=== PATIENT | female | born 1960 | race Caucasian/White ===

== ENCOUNTER → 2019-05-09 12:05 | Outpatient (CLI) | payer BC, SELFPAY ==
--- NOTE | ~2019-05-09 | MM_ITS ---
EXAMINATION: MM screening erum BI w chelle HISTORY: Screening mammogram TECHNIQUE: Craniocaudal and mediolateral oblique 3-D tomosynthesis images were obtained and synthetic 2-D images were generated. CAD analysis was submitted and interpreted. COMPARISON: 03/07/2018 diagnostic left digital mammogram and limited left breast ultrasound 03/16/2018 bilateral digital screening mammogram 08/12/2016 diagnostic right digital mammogram 08/02/2016 and lateral digital screening mammogram BREAST PARENCHYMAL COMPOSITION: The breasts are heterogeneously dense, which may obscure small masses . FINDINGS: There is a biopsy marker on the left; history of 2018 benign left breast biopsy. Occasional benign calcifications. There is no evidence of suspicious mass, calcification, or architectural dist ortion to suggest malignancy in either breast. There has been no suspicious interval change. IMPRESSION: 1. No mammographic evidence of malignancy. 2. Recommend routine screening mammography in one year. BI-RADS Category 2: Benign finding(s). Reviewed, dictated and finalized at location A. MENT WORKER
--- NOTE | ~2019-05-09 | DEXA_ITS ---
Bone Density Report Name: Kate Sandoval Age: 59 Sex: Female Ethnicity: White Date of : 1960 Indication: postmenopausal osteoporosis; monitoring treatment; rheumatoid arthritis; Referring Provider: Saarh Beth, Cass Staton Study: Bone densitometry was performed. Exam Date: May 09, 2019 Accession number: [id number] Bone Density: Region BMD T-score Z-score Classification AP Spine (L1-L4) 0.740 -2.8 -1.6 Osteoporosis Femoral Neck (Left) 0.567 -2.5 -1.4 Osteoporosis Total Hip (Left) 0.733 -1.7 -0.9 Osteopenia Femoral Neck (Right) 0.606 -2.2 -1.0 Osteopenia Total Hip (Right) 0.767 -1.4 -0.6 Osteopenia Total Hip Mean 0.750 -1.6 -0.8 Osteopenia World Health Organization criteria for BMD impression classify patients as: Normal (T-score at or above -1.0), Osteopenia (T-score between -1.0 and -2.5), or Osteoporosis (T-score at or below -2.5). 10-year Fracture Risk: FRAX not reported because: Some T-score for Spine Total or Hip Total or Femoral Neck at or below -2.5 Treated for osteoporosis Previous Exams: Region Exam Age BMD T-score BMD Change BMD Change Date g/cm2 vs Baseline vs Previous AP Spine(L1-L4) 05/09/2019 59 0.740 -2.8 -0.203 -0.006 02/27/2018 57 0.746 -2.7 -0.197 -0.113* 01/23/2015 54 0.859 -1.7 -0.084 0.007 12/02/2012 52 0.853 -1.8 -0.091 -0.091 04/25/2002 42 0.943 -0.9 Total Hip(Left) 05/09/2019 59 0.733 -1.7 -0.116 0.017 02/27/2018 57 0.716 -1.9 -0.133 -0.040* 01/23/2015 54 0.756 -1.5 -0.093 -0.030* 12/02/2012 52 0.786 -1.3 -0.063 -0.063 04/25/2002 42 0.849 -0.8 Total Hip(Right) 05/09/2019 59 0.767 -1.4 -0.115 0.010 02/27/2018 57 0.757 -1.5 -0.125 -0.046* 01/23/2015 54 0.803 -1.1 -0.080 -0.033* 12/02/2012 52 0.836 -0.9 -0.047 -0.047 04/25/2002 42 0.882 -0.5 *Denotes significance at 95% confidence level, LSC for AP Spine = 0.022 g/cm2, LSC for Total Hip = 0.027 g/cm2 Clinical Information Provided by Patient: Has rheumatoid arthritis Is being treated for osteoporosis Has used the following medications: Evista (i.e. raloxifene), Vitamin D, Calcium Patient maximum height was 61.25 Menopause Age: 51 Onset of menses at age 15 Number of children 3
== END ==
PROVIDERS: PCP Internal Medicine; Visit Provider Nurse Practitioner Obstetrics & Gynecology
DX: Z12.31 Encounter for screening mammogram for malignant neoplasm of breast (principal); M81.0 Age-related osteoporosis without current pathological fracture; M85.852 Other specified disorders of bone density and structure, left thigh; M85.851 Other specified disorders of bone density and structure, right thigh
CPT/HCPCS: 77063; 77067; 77080

== ENCOUNTER 2019-05-15 07:04 | Outpatient (CLI) | payer BC, SELFPAY ==
[2019-05-15 09:06] LABS: Alanine Aminotransferase 29 U/L (14-59); Alkaline Phosphatase 28 U/L (46-116); Anion Gap 13.6 mmol/L (7-16); Aspartate Amino Transferase 23 U/L (15-37); Bilirubin,Total 0.5 mg/dL (0.00-1.00); Blood Urea Nitrogen 11 mg/dL (7-18); Carbon Dioxide 29 mmol/L (21-32); Chloride 106 mmol/L (98-108); Estimated Glomerular Filt Rate > 60; Free T3 2.56 pg/mL (2.18-3.98); Free T4 Free Thyroxine 0.83 ng/dL (0.76-1.46); Glucose 91 mg/dL (70-99); Osmolality Calculated 297 mOsm/kg (285-295); Potassium 4.6 mmol/L (3.5-5.1); Sodium 144 mmol/L (136-145); Thyroid Stimulating Hormone 3.08 uIU/mL (0.36-3.74); Total Protein 6.9 g/dL (6.4-8.2)
[2019-05-18 02:51] LABS: Thyroid Peroxidase Antibodies 198 IU/mL (<9)
== END 2019-05-15 07:05 | disposition home or self-care (01) ==
PROVIDERS: PCP Internal Medicine; Visit Provider Internal Medicine Endocrinology, Diabetes & Metabolism
DX: E06.3 Autoimmune thyroiditis (principal)
CPT/HCPCS: 36415; 80053; 84439; 84443; 84481; 86376

== ENCOUNTER 2019-05-29 07:24 | Outpatient (CLI) | payer BC, SELFPAY ==
[2019-05-29 08:37] LABS: Rheumatoid Factor Screen Negative (Negative)
[2019-05-29 09:08] LABS: Vitamin B12 807 pg/mL (193-986)
[2019-05-29 09:25] LABS: Folic Acid > 20.0 ng/mL (8.6->20)
[2019-06-03 11:26] LABS: Anti Cyclic Citrullinated Pept <16 Units (<20)
== END 2019-05-29 07:25 | disposition home or self-care (01) ==
PROVIDERS: PCP Internal Medicine; Visit Provider Internal Medicine Endocrinology, Diabetes & Metabolism
DX: Z87.39 Personal history of other diseases of the musculoskeletal system and connective tissue (principal)
CPT/HCPCS: 36415; 82607; 82746; 86200; 86430

== ENCOUNTER 2019-08-24 07:09 | Outpatient (CLI) | payer BC, SELFPAY ==
[2019-08-24 08:35] LABS: Alanine Aminotransferase 23 U/L (14-59); Alkaline Phosphatase 28 U/L (46-116); Anion Gap 12.3 mmol/L (7-16); Aspartate Amino Transferase 17 U/L (15-37); Bilirubin,Total 0.6 mg/dL (0.00-1.00); Blood Urea Nitrogen 11 mg/dL (7-18); Calcium 8.9 mg/dL (8.5-10.1); Carbon Dioxide 29 mmol/L (21-32); Chloride 104 mmol/L (98-108); Estimated Glomerular Filt Rate > 60; Free T3 2.71 pg/mL (2.18-3.98); Glucose 92 mg/dL (70-99); Osmolality Calculated 291 mOsm/kg (285-295); Potassium 4.3 mmol/L (3.5-5.1); Sodium 141 mmol/L (136-145); Thyroid Stimulating Hormone 3.36 uIU/mL (0.36-3.74)
[2019-08-27 03:40] LABS: Thyroid Peroxidase Antibodies 183 IU/mL (<9)
[2019-08-28 11:27] LABS: Vitamin D 25 Hydroxy 54 ng/mL (30-100)
[2019-08-28 12:24] LABS: Parathyroid Intact 29 pg/mL (14-64)
== END 2019-08-24 07:10 | disposition home or self-care (01) ==
PROVIDERS: PCP Internal Medicine; Visit Provider Internal Medicine Endocrinology, Diabetes & Metabolism
DX: E06.3 Autoimmune thyroiditis (principal); M81.0 Age-related osteoporosis without current pathological fracture
CPT/HCPCS: 36415; 80053; 82306; 83970; 84439; 84443; 84481; 86376

== ENCOUNTER 2019-08-24 15:30 | Outpatient (CLI) | payer BC, SELFPAY ==
--- NOTE | ~2019-08-24 | US_ITS ---
US thyroid INDICATION: Follow-up thyroid nodules. Hypothyroidism. TECHNIQUE: Real-time sonographic images of the thyroid gland were obtained. COMPARISON: Ultrasound dated 12/25/2018 FINDINGS: The right thyroid lobe measures 3 x 1.3 x 1.4 cm. No right thyroid mass identified on curre nt study. The left thyroid lobe measures 3.4 x 1.2 x 1.3 cm. There are 2 small left thyroid nodules m easuring 7 and 6 mm respectively greatest dimension without significant change from prior study allow ing for technique. IMPRESSION: 1. Small left thyroid nodules measuring 7 mm or less without significant change, most likely benign. These nodules do not meet TI rads criteria for biopsy or continued ultrasound follow-up. Reviewed, dictated and finalized at location A. IMPRESSION: 1. Small left thyroid nodules measuring 7 mm or less without significant matos e, most likely benign. These nodules do not meet TI rads criteria for biopsy or continued ultrasound follow-up.
== END 2019-08-24 15:31 | disposition home or self-care (01) ==
PROVIDERS: PCP Internal Medicine; Visit Provider Internal Medicine Endocrinology, Diabetes & Metabolism
DX: E03.9 Hypothyroidism, unspecified (principal); E04.2 Nontoxic multinodular goiter
CPT/HCPCS: 76536

== ENCOUNTER 2019-10-15 00:44 | Outpatient (CLI) | payer BC, SELFPAY ==
[2019-10-15 19:21] LABS: SARS-CoV-2 RNA PCR Negative
== END 2019-10-15 00:45 | disposition home or self-care (01) ==
LOC: ANHCOVIDDT 00:47
PROVIDERS: PCP Internal Medicine; Visit Provider Internal Medicine Gastroenterology
DX: Z01.812 Encounter for preprocedural laboratory examination (principal); Z11.59 Encounter for screening for other viral diseases
CPT/HCPCS: 87635; C9803; U0003

== ENCOUNTER 2019-10-17 02:56 | Day surgery (SDC) | payer BC, SELFPAY ==
[2019-10-09 14:09] VITALS: BMI 18.1
[2019-10-17 06:27] VITALS: BP 141/78; PULSE 89; RESP 14; TEMP 36.6; O2SAT 100; BMI 17.9
[2019-10-17] MEDS: LACTATED RINGERS 1,000 ML 150 ML IV CONT (06:40)
--- NOTE | 2019-10-17 06:48 | WPDANESEPPF ---
Anes - Initial Pre Proc Eval Procedure: Operation Date: 10/17/19 07:30 Proposed Procedures p Screening Colonoscopy - Lei Joyce MD Date/Time: 10/17/19 06:48 Surgeon: Lei Joyce MD Pre Op Diagnosis: Neoplasm Screening Patient Data Age: 59 Gender: F Height: 1.57 m Weight: 44.6 kg Last Vital Signs Temp 36.6 C 10/17/19 06:27 Pulse 89 10/17/19 06:27 Resp 14 10/17/19 06:27 BP 141/78 H 10/17/19 06:27 Pulse Ox 100 10/17/19 06:27 Allergies Allergy/AdvReac Type Severity Reaction Status Date / Time hydrocodone Allergy Mild Rash Verified 10/17/19 06:25 Penicillins Allergy Mild Rash Verified 10/17/19 06:25 Home Medications Medication Instructions Recorded Confirmed Type calcium carbonate 500 mg calcium 500 mg PO DAILY 08/24/19 10/17/19 History (1,250 mg) tablet cholecalciferol (vitamin D3) 50 50 mcg PO DAILY 08/24/19 10/17/19 History mcg (2,000 unit) capsule lactobacillus combination no.8 3 3,000 mmu cells PO DAILY 08/24/19 10/17/19 History billion cell capsule rljvvmezkpjw-Jc-xocp-minerals 1 tablet PO .qd tablet 08/24/19 10/17/19 History raloxifene 60 mg tablet 60 mg PO DAILY 08/24/19 10/17/19 History Thyroid Supplement 1 tab-cap PO DAILY 10/09/19 10/17/19 History Patient hx anesthesia problems: none Family hx anesthesia problems: none [facility] Past Medical History Medical History (Updated 10/17/19 @ 06:50 by Patrick Portillo MD) Clint's thyroiditis History of rheumatoid arthritis Osteoporosis Palpitations Thyroid nodule Social History Social History Smoking status: Never smoker Second hand tobacco smoke exposure: No Alcohol intake: current Drinks per week: 1 Substance use: never Anes - Eval Final PreProcedure Day of Procedure 10/17/19 06:48 Patient weight: normal Heart: regular rate and rhythm Lungs: clear to auscultation and normal air movement Airway: Mallampati scale class II Neurological: alert and oriented Last oral intake: >/= 8 hours ASA classification: II Emergent: no Anesthetic plan: proceed Anesthesia type and monitoring: general GIVS Informed Consent: The patient's anesthetic plan and its attendant risks and benefits were discussed with the patient/family/POA. Questions were solicited and answers provided to the satisfaction of the patient/family/POA.
--- NOTE | 2019-10-17 07:31 | WPDGICN ---
Assessment and Plan Assessment and plan (1) Encounter for screening for colorectal malignant neoplasm: Code(s): Z12.11 - Encounter for screening for malignant neoplasm of colon; Z12.12 - Encounter for screening for malignant neoplasm of rectum Status: Acute Assessment and Plan: screening colonoscopy today. He has been 10 years since patient's last screening exam. Further recommendations will be given after endoscopy. GI Consult Note Consult date/time: 10/17/19 07:31 HPI: Kate Sandoval is a 59 year old female seen in evaluation at the request of Dr Messer.Patient presents for neoplasia screening colonoscopy. Patient's current weight appetite bowel movements are normal. She denies abdominal pain. She does not see blood in her bowel movements. Her weight has remained stable. Her last colonoscopy 10 years ago was unremarkable. Review of Systems Review of Systems: All systems reviewed & are unremarkable except as noted in HPI and below PMFSH Past Medical History Medical History Clint's thyroiditis History of rheumatoid arthritis Osteoporosis Palpitations Thyroid nodule Family History Family History Father Hypertension Family history of osteoarthritis Family history of elevated blood lipids Family history of dementia Mother Hypertension Family history of heart disease in male family member before age 55 Sibling Patient's sister is Family history of rheumatoid arthritis Other Diabetes mellitus Family history of cardiovascular disease Family history of malignant neoplasm of skin Social History Social History Smoking status: Never smoker Second hand tobacco smoke exposure: No Alcohol intake: current Drinks per week: 1 Substance use: never Meds Home Medications and Allergies Home Medications Medication Instructions Recorded Confirmed Type calcium carbonate 500 mg calcium 500 mg PO DAILY 08/24/19 10/17/19 History (1,250 mg) tablet cholecalciferol (vitamin D3) 50 50 mcg PO DAILY 08/24/19 10/17/19 History mcg (2,000 unit) capsule lactobacillus combination no.8 3 3,000 mmu cells PO DAILY 08/24/19 10/17/19 History billion cell capsule rbxczjzaqrjz-Za-lsqz-minerals 1 tablet PO .qd tablet 08/24/19 10/17/19 History raloxifene 60 mg tablet 60 mg PO DAILY 08/24/19 10/17/19 History Thyroid Supplement 1 tab-cap PO DAILY 10/09/19 10/17/19 History Allergies Allergy/AdvReac Type Severity Reaction Status Date / Time hydrocodone Allergy Mild Rash Verified 10/17/19 06:25 Penicillins Allergy Mild Rash Verified 10/17/19 06:25 Vital Signs Vital Signs - 24 hr 10/17/19 06:27 Temperature 97.9 F Pulse Rate 89 Respiratory Rate 14 Blood Pressure 141/78 H Pulse Oximetry 100 Exam Narrative: Exam Narrative: Physical exam reveals her to be alert. Vital signs stable. HEENT exam unremarkable. Lungs are clear to auscultation and percussion. Heart is without murmur or extra sounds. Abdominal exam bowel sounds are present soft nontender with no hepatosplenomegaly. Digital external rectal exam normal
[2019-10-17] MEDS: SIMETHICONE ORAL SUSPENSION 20 MG/0.3 ML 30 ML BOTTLE 0.6 ML IRRIGATION (07:41)
[2019-10-17 07:53] VITALS: BP 99/58; PULSE 83; RESP 13; O2SAT 98
[2019-10-17 08:03] VITALS: BP 112/70; PULSE 94; RESP 18; O2SAT 97
[2019-10-17 08:13] VITALS: BP 120/79; PULSE 78; RESP 20; O2SAT 100
--- NOTE | 2019-10-17 08:37 | SUR.PHASEII ---
PT AWARE OF FINDINGS PER DISCHARGE INSTRUCTIONS. REQUESTING TO LEAVE AFTER BEING IN RECOVERY AND NOT HAVING SEEN THE DOCTOR POST PROCEDURE. PT AWARE TO CALL DOCTORS OFFICE WITH ANY QUESTIONS OR NEEDS. PT HAS NO QUESTIONS AT THIS TIME. DR FUNG MADE AWARE.
--- NOTE | 2022-09-21 12:53 | AMEND_ITS ---
Record Amendment there is a error in the [facility]- #1- NO family hx of heart ds in male family member before age 55 #2 sister is not The above addendum was made to the patient's record by Dr. Nir Messer on 09/19/2022 at 1253. Original addendum is on the Office Visit note from account [id number]. MTDD
== END 2019-10-17 08:35 | disposition home or self-care (01) ==
PROVIDERS: PCP Internal Medicine; Visit Provider Internal Medicine Gastroenterology
PROC: 0DJD8ZZ Inspection of Lower Intestinal Tract, Via Natural or Artificial Opening Endoscopic (ICD-10-PCS; CPT 45378; principal; 2019-10-17 07:30)
DX: Z12.11 Encounter for screening for malignant neoplasm of colon (principal); K64.8 Other hemorrhoids; E06.3 Autoimmune thyroiditis; M81.0 Age-related osteoporosis without current pathological fracture; M06.9 Rheumatoid arthritis, unspecified
CPT/HCPCS: 45378; J2704; J7120

== ENCOUNTER 2020-02-04 07:05 | Outpatient (CLI) | payer BC, SELFPAY ==
[2020-02-04 09:15] LABS: Alanine Aminotransferase 26 U/L (14-59); Albumin Level 3.9 g/dL (3.4-5.0); Alkaline Phosphatase 30 U/L (46-116); Anion Gap 9 mmol/L (8-16); Aspartate Amino Transferase 17 U/L (15-37); Bilirubin,Total 0.6 mg/dL (0.00-1.00); Blood Urea Nitrogen 16 mg/dL (7-18); Calcium 8.6 mg/dL (8.5-10.1); Carbon Dioxide 28 mmol/L (21-32); Chloride 106 mmol/L (98-108); Estimated Glomerular Filt Rate > 60; Free T3 2.42 pg/mL (2.18-3.98); Glucose 92 mg/dL (70-99); Osmolality Calculated 297 mOsm/kg (285-295); Phosphorus 4.9 mg/dL (2.6-4.7); Potassium 4.3 mmol/L (3.5-5.1); Sodium 143 mmol/L (136-145); Thyroid Stimulating Hormone 3.42 uIU/mL (0.36-3.74); Total Protein 6.6 g/dL (6.4-8.2)
[2020-02-06 14:14] LABS: Parathyroid Intact 33 pg/mL (14-64)
[2020-02-06 19:35] LABS: Vitamin D 25 Hydroxy 42 ng/mL (30-100)
[2020-02-07 03:41] LABS: Thyroid Peroxidase Antibodies 249 IU/mL (<9)
== END 2020-02-04 07:06 | disposition home or self-care (01) ==
PROVIDERS: PCP Internal Medicine; Visit Provider Internal Medicine Endocrinology, Diabetes & Metabolism
DX: E06.3 Autoimmune thyroiditis (principal); M81.0 Age-related osteoporosis without current pathological fracture
CPT/HCPCS: 36415; 80053; 82306; 83970; 84100; 84439; 84443; 84481; 86376

== ENCOUNTER → 2020-06-17 16:18 | Outpatient (CLI) | payer BC, SELFPAY ==
--- NOTE | ~2020-06-17 | US_ITS ---
EXAMINATION: US thyroid EXAM DATE: 06/17/2020 16:35 INDICATION: Non toxic single thyroid nodule . TECHNIQUE: Multiple grayscale and Doppler images of the thyroid were obtained (by a technologist who performed the scan) and subsequently reviewed. Individual nodules and recommendations may be reporte d in accordance with TI-RADS system as designated by the 2017 ACR White Paper TI-RADS committee. Comp piyush is made to prior examination from 12/25/2018, 08/24/2019. FINDINGS: The right thyroid lobe measures 2.9 x 1.4 x 1.2 cm, the left measuring 3.3 x 1.3 x 1.4 cm. Mildly dif fusely heterogeneous thyroid echogenicity and diffusely hypervascular parenchyma. Again there are sev eral thyroid nodules identified which are 7 mm or less in size, not significantly changed and not lik john clinically significant. Return to clinical follow-up. IMPRESSION: Small thyroid nodules not likely clinically significant. Return to clinical follow-up and if additional palpable abnormality develops a repeat ultrasound can be obtained. Reviewed, dictated and finalized at location A. IMPRESSION: Small thyroid nodules not likely clinically significant. Return to clinical follow-up and if additional palpable abnormality develops a repeat ult rasound can be obtained.
== END ==
PROVIDERS: PCP Internal Medicine; Visit Provider Internal Medicine Endocrinology, Diabetes & Metabolism
DX: E04.1 Nontoxic single thyroid nodule (principal)
CPT/HCPCS: 76536

== ENCOUNTER 2020-06-23 07:03 | Outpatient (CLI) | payer BC, SELFPAY ==
[2020-06-23 08:28] LABS: Alanine Aminotransferase 26 U/L (14-59); Albumin Level 3.9 g/dL (3.4-5.0); Alkaline Phosphatase 39 U/L (46-116); Anion Gap 8 mmol/L (8-16); Aspartate Amino Transferase 18 U/L (15-37); Bilirubin,Total 0.5 mg/dL (0.00-1.00); Blood Urea Nitrogen 15 mg/dL (7-18); Calcium 8.7 mg/dL (8.5-10.1); Carbon Dioxide 29 mmol/L (21-32); Chloride 104 mmol/L (98-108); Estimated Glomerular Filt Rate 60; Free T3 2.69 pg/mL (2.18-3.98); Free T4 Free Thyroxine 0.89 ng/dL (0.76-1.46); Glucose 97 mg/dL (70-99); Osmolality Calculated 292 mOsm/kg (285-295); Potassium 4.3 mmol/L (3.5-5.1); Sodium 141 mmol/L (136-145); Thyroid Stimulating Hormone 4.63 uIU/mL (0.36-3.74); Total Protein 6.7 g/dL (6.4-8.2)
[2020-06-25 06:14] LABS: Thyroid Peroxidase Antibodies 222 IU/mL (<9)
[2020-06-26 10:17] LABS: Calcitonin <2 pg/mL (<=5)
[2020-06-26 10:39] LABS: Vitamin D 25 Hydroxy 49 ng/mL (30-100)
[2020-06-26 11:47] LABS: Parathyroid Intact 35 pg/mL (14-64)
== END 2020-06-23 07:04 | disposition home or self-care (01) ==
PROVIDERS: PCP Internal Medicine; Visit Provider Internal Medicine Endocrinology, Diabetes & Metabolism
DX: E06.3 Autoimmune thyroiditis (principal); M81.0 Age-related osteoporosis without current pathological fracture; E04.1 Nontoxic single thyroid nodule
CPT/HCPCS: 36415; 80053; 82306; 82308; 83970; 84439; 84443; 84481; 86376

== ENCOUNTER → 2020-07-03 17:10 | Outpatient (CLI) | payer BC, SELFPAY ==
--- NOTE | ~2020-07-03 | MM_ITS ---
EXAMINATION: MM screening erum BI w chelle HISTORY: Screening mammogram TECHNIQUE: Craniocaudal and mediolateral oblique 3-D tomosynthesis images were obtained and synthetic 2-D images were generated. CAD analysis was submitted and interpreted. COMPARISON: 05/09/2019 bilateral digital screening mammogram 03/07/2018 diagnostic left digital mammogram and limited left breast ultrasound 02/27/2018 bilateral digital screening mammogram BREAST PARENCHYMAL COMPOSITION: The breasts are heterogeneously dense, which may obscure small masses . FINDINGS: There is a biopsy marker on the left; history of prior benign left breast biopsy. There is no evidence of suspicious mass, calcification, or architectural distortion to suggest malignancy in e ither breast. There has been no suspicious interval change. IMPRESSION: 1. No mammographic evidence of malignancy. 2. Recommend routine screening mammography in one year. BI-RADS Category 1: Negative Reviewed, dictated and finalized at location A.
== END ==
PROVIDERS: PCP Internal Medicine; Visit Provider Nurse Practitioner Obstetrics & Gynecology
DX: Z12.31 Encounter for screening mammogram for malignant neoplasm of breast (principal)
CPT/HCPCS: 77063; 77067

== ENCOUNTER 2020-11-10 07:07 | Outpatient (CLI) | payer BC, SELFPAY ==
[2020-11-10 08:51] LABS: Alanine Aminotransferase 27 U/L (14-59); Albumin Level 4.2 g/dL (3.4-5.0); Alkaline Phosphatase 35 U/L (46-116); Anion Gap 11 mmol/L (8-16); Aspartate Amino Transferase 19 U/L (15-37); Bilirubin,Total 0.7 mg/dL (0.00-1.00); Blood Urea Nitrogen 13 mg/dL (7-18); Carbon Dioxide 29 mmol/L (21-32); Chloride 105 mmol/L (98-108); Estimated Glomerular Filt Rate > 60; Free T4 Free Thyroxine 0.95 ng/dL (0.76-1.46); Glucose 90 mg/dL (70-99); Osmolality Calculated 300 mOsm/kg (285-295); Phosphorus 5.1 mg/dL (2.6-4.7); Potassium 4.3 mmol/L (3.5-5.1); Sodium 145 mmol/L (136-145); Total Protein 7.2 g/dL (6.4-8.2); Vitamin B12 924 pg/mL (193-986)
[2020-11-10 09:19] LABS: Folic Acid > 20.0 ng/mL (8.6->20)
[2020-11-11 10:33] LABS: Free T3 2.81 pg/mL (2.18-3.98)
[2020-11-13 12:03] LABS: Vitamin D 25 Hydroxy 67 ng/mL (30-100)
[2020-11-14 06:29] LABS: Thyroid Peroxidase Antibodies 288 IU/mL (<9)
[2020-11-14 12:49] LABS: Parathyroid Intact 27 pg/mL (14-64)
== END 2020-11-10 07:08 | disposition home or self-care (01) ==
PROVIDERS: PCP Internal Medicine; Visit Provider Internal Medicine Endocrinology, Diabetes & Metabolism
DX: E06.3 Autoimmune thyroiditis (principal); M81.0 Age-related osteoporosis without current pathological fracture
CPT/HCPCS: 36415; 80053; 82306; 82607; 82746; 83970; 84100; 84439; 84443; 84480; 84481; 86376

== ENCOUNTER 2021-02-25 07:03 | Outpatient (CLI) | payer BC, SELFPAY ==
[2021-02-28 14:43] LABS: Vitamin B6 27.1 ng/mL (2.1-21.7)
== END 2021-02-25 07:04 | disposition home or self-care (01) ==
LOC: CHSLAB 07:05
PROVIDERS: PCP Internal Medicine; Visit Provider Internal Medicine Endocrinology, Diabetes & Metabolism
DX: E83.39 Other disorders of phosphorus metabolism (principal)
CPT/HCPCS: 36415; 84207

== ENCOUNTER 2021-06-09 07:10 | Outpatient (CLI) | payer BC, SELFPAY ==
[2021-06-09 08:41] LABS: Free T3 2.82 pg/mL (2.18-3.98); Free T4 Free Thyroxine 0.93 ng/dL (0.76-1.46); Magnesium 1.6 mg/dL (1.8-2.4); Phosphorus 5.3 mg/dL (2.6-4.7)
[2021-06-09 16:29] LABS: Thyroid Stimulating Hormone 3.61 uIU/mL (0.36-3.74)
[2021-06-12 05:07] LABS: Thyroid Peroxidase Antibodies 208 IU/mL (<9)
[2021-06-12 15:37] LABS: Vitamin D 25 Hydroxy 54 ng/mL (30-100)
== END 2021-06-09 07:11 | disposition home or self-care (01) ==
LOC: CHSLAB 07:13
PROVIDERS: PCP Internal Medicine; Visit Provider Internal Medicine Endocrinology, Diabetes & Metabolism
DX: E06.3 Autoimmune thyroiditis (principal); E83.39 Other disorders of phosphorus metabolism
CPT/HCPCS: 36415; 82306; 83735; 84100; 84439; 84443; 84481; 86376

== ENCOUNTER → 2021-09-18 07:16 | Outpatient (CLI) | payer BC, SELFPAY ==
--- NOTE | ~2021-09-18 | MM_ITS ---
EXAMINATION: MM screening erum BI w chelle HISTORY: Screening mammogram TECHNIQUE: Craniocaudal and mediolateral oblique 3-D tomosynthesis images were obtained and synthetic 2-D images were generated. CAD analysis was submitted and interpreted. COMPARISON: No prior mammogram is available for comparison at this institution. BREAST PARENCHYMAL COMPOSITION: The breasts are heterogeneously dense, which may obscure small masses . FINDINGS: Biopsy marker on the left; history of prior benign left breast biopsy. There is no evidence of suspicious mass, calcification, or architectural distortion to suggest malignancy in either breas t. There has been no suspicious interval change. IMPRESSION: 1. No mammographic evidence of malignancy. 2. Recommend routine screening mammography in one year. BI-RADS Category 1: Negative Reviewed, dictated and finalized at location A.
== END ==
PROVIDERS: PCP Internal Medicine; Visit Provider Nurse Practitioner Obstetrics & Gynecology
DX: Z12.31 Encounter for screening mammogram for malignant neoplasm of breast (principal)
CPT/HCPCS: 77063; 77067

== ENCOUNTER 2021-10-16 07:18 | Outpatient (CLI) | payer BC, SELFPAY ==
[2021-10-16 08:43] LABS: Alanine Aminotransferase 27 U/L (14-59); Alkaline Phosphatase 37 U/L (46-116); Anion Gap 6 mmol/L (8-16); Aspartate Amino Transferase 21 U/L (15-37); Bilirubin,Total 0.7 mg/dL (0.00-1.00); Blood Urea Nitrogen 9 mg/dL (7-18); Calcium 9.1 mg/dL (8.5-10.1); Carbon Dioxide 30 mmol/L (21-32); Chloride 106 mmol/L (98-108); Estimated Glomerular Filt Rate > 60; Free T3 2.33 pg/mL (2.18-3.98); Free T4 Free Thyroxine 0.95 ng/dL (0.76-1.46); Glucose 96 mg/dL (70-99); Osmolality Calculated 292 mOsm/kg (285-295); Phosphorus 4.9 mg/dL (2.6-4.7); Potassium 4.4 mmol/L (3.5-5.1); Sodium 142 mmol/L (136-145); Thyroid Stimulating Hormone 3.21 uIU/mL (0.36-3.74); Total Protein 6.9 g/dL (6.4-8.2); Vitamin B12 1049 pg/mL (193-986)
[2021-10-16 08:46] LABS: Folic Acid > 20.0 ng/mL (8.6->20)
[2021-10-16 15:21] LABS: Cholesterol 186 mg/dL (0-200); HDL Direct 87 mg/dL (40-60); LDL Cholesterol Calculated 89 mg/dL (<130); Triglycerides 48 mg/dL (0-150)
[2021-10-19 22:51] LABS: Vitamin D 25 Hydroxy 62 ng/mL (30-100)
[2021-10-20 11:46] LABS: Parathyroid Intact 29 pg/mL (14-64)
[2021-10-24 04:48] LABS: Thyroid Peroxidase Antibodies 191 IU/mL (<9)
== END 2021-10-16 07:19 | disposition home or self-care (01) ==
LOC: CHSLAB 07:20
PROVIDERS: PCP Internal Medicine; Visit Provider Nurse Practitioner
DX: E06.3 Autoimmune thyroiditis (principal); M81.0 Age-related osteoporosis without current pathological fracture; Z13.220 Encounter for screening for lipoid disorders
CPT/HCPCS: 36415; 80053; 80061; 82306; 82607; 82746; 83970; 84100; 84439; 84443; 84481; 86376

== ENCOUNTER 2022-06-10 07:11 | Outpatient (CLI) | payer BC, SELFPAY ==
[2022-06-10 08:19] LABS: Alanine Aminotransferase 31 U/L (14-59); Albumin Level 4.2 g/dL (3.4-5.0); Alkaline Phosphatase 35 U/L (46-116); Anion Gap 9 mmol/L (8-16); Aspartate Amino Transferase 22 U/L (15-37); Bilirubin,Total 0.6 mg/dL (0.00-1.00); Blood Urea Nitrogen 10 mg/dL (7-18); Calcium 9.2 mg/dL (8.5-10.1); Carbon Dioxide 30 mmol/L (21-32); Chloride 103 mmol/L (98-108); Estimated Glomerular Filt Rate > 60; Free T3 2.96 pg/mL (2.18-3.98); Free T4 Free Thyroxine 0.96 ng/dL (0.76-1.46); Glucose 95 mg/dL (70-99); Magnesium 1.9 mg/dL (1.8-2.4); Osmolality Calculated 293 mOsm/kg (285-295); Potassium 4.6 mmol/L (3.5-5.1); Sodium 142 mmol/L (136-145); Thyroid Stimulating Hormone 3.57 uIU/mL (0.36-3.74); Total Protein 7.2 g/dL (6.4-8.2)
[2022-06-13 19:00] LABS: Parathyroid Intact 24 pg/mL (14-64)
[2022-06-13 20:03] LABS: Vitamin D 25 Hydroxy 103 ng/mL (30-100)
[2022-06-14 04:14] LABS: Thyroid Peroxidase Antibodies 265 IU/mL (<9)
== END 2022-06-10 07:12 | disposition home or self-care (01) ==
LOC: CHSLAB 07:14
PROVIDERS: PCP Internal Medicine; Visit Provider Internal Medicine Endocrinology, Diabetes & Metabolism
DX: M81.0 Age-related osteoporosis without current pathological fracture (principal); E06.3 Autoimmune thyroiditis; E83.39 Other disorders of phosphorus metabolism
CPT/HCPCS: 36415; 80053; 82306; 83735; 83970; 84100; 84439; 84443; 84481; 86376

== ENCOUNTER → 2022-10-21 12:40 | Outpatient (CLI) | payer BC, SELFPAY ==
--- NOTE | ~2022-10-21 | MM_ITS ---
EXAMINATION: MM screening erum BI w chelle HISTORY: Screening mammogram, family history of breast cancer in her sister. TECHNIQUE: Craniocaudal and mediolateral oblique 3-D tomosynthesis images were obtained and synthetic 2-D images were generated. CAD analysis was submitted and interpreted. COMPARISON: 09/18/2021, 07/03/2020, 05/09/2019 BREAST PARENCHYMAL COMPOSITION: The breasts are heterogeneously dense, which may obscure small masses . FINDINGS: No suspicious mass, calcification, or architectural distortion are identified in either oseas ast to suggest malignancy. There has been no suspicious interval change. IMPRESSION: 1. No mammographic evidence of malignancy. 2. Recommend routine screening mammography in one year. BI-RADS Category 1: Negative Reviewed, dictated and finalized at location A.
== END ==
PROVIDERS: PCP Internal Medicine; Visit Provider Nurse Practitioner Obstetrics & Gynecology
DX: Z12.31 Encounter for screening mammogram for malignant neoplasm of breast (principal)
CPT/HCPCS: 77063; 77067

== ENCOUNTER 2024-12-18 07:43 | Outpatient (CLI) | payer BC, SELFPAY ==
--- OUTSIDE RECORDS SUMMARY | 2007-06-01 09:22 | XMS_ITS | Continuity of Care Document ---
Author Organization [facility] Address [address] [place] [address] [address] [place] [address] Phone Care Team Providers Care Advertising Manager Name Role Phone Ina Booth Unavailable Unavailable Procedures Procedure Date Eye Exam, New Patient Advance Directives Directive Yes / No Effective Date File Name No Information Encounters Encounter Description Practice Location Reason(s) For Visit Diagnoses Date Provider Providers Copied on Encounter [facility], [id number] [place] [address] [address], [place], [place], [id number], [place] tel:[phone] [facility] No Information Mar-0 6-200 8 Emmy Buckley. [address] [facility] , [address], [place], [address], [place]. tel:[phone] Family History Family Member Type Diagnosis Age At Onset No Information Payers Payer name Insurance type Covered constitution party ID Authoriza tion(s) No Information Social History Type Description Quantity Date Captured Comments Sex Female Smoking Status No Information Chief Complaint And Reason For Visit No Information Reason For Referral Reason For Referral No Information History Of Present Illness Encounter Date Complaint History Of Prese nt Illness No Information Functional Status Date Functional Assessmen t No Information Instructions Date Instruction Additional Infor mation No Information Assessments Type Assessment Date No Information Patient Care Teams Name Effective Dates (start - stop) Status Members No Information
--- NOTE | ~2024-12-18 | MM_ITS ---
EXAMINATION: MM screening erum BI w chelle HISTORY: Screening TECHNIQUE: Craniocaudal and mediolateral oblique 3-D tomosynthesis images were obtained and synthetic 2-D images were generated. CAD analysis was submitted and interpreted. COMPARISON: Comparison to multiple prior studies sequentially, with oldest reviewed study dated , 05/09/2019 BREAST PARENCHYMAL COMPOSITION: The breasts are heterogeneously dense, which may obscure small masses. FINDINGS: There is no evidence of suspicious mass, calcification, or architectural distortion to suggest malignancy in either breast. IMPRESSION: 1. No mammographic evidence of malignancy. 2. Recommend routine screening mammography in one year. BI-RADS Category 1: Negative Reviewed, dictated and finalized at location B.
--- OUTSIDE RECORDS SUMMARY | 2024-12-18 07:53 | XMS_ITS | Encounter Summary ---
Author Organization [facility] Address [address] [place] [address] Phone Care Team Providers Care Jd Edwards Consultant Name Role Phone Nir Messer MD Primary Care Provider [phone] Florecita Tijerina MD Unavailable [phone] Encounter Details Date Type Department Care Team (Late st Contact Info) Description 05/09/2019 Orders Only [facility] Scanning, Provider Social History Tobacco Use Types Packs/Day Years Used Date Smoking Tobacco: Never Assessed Comments Unknown Sex and Gender Information Value Date Recorded Sex Assigned at Not on file 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 Gender Identity Not on file Sexual Orientation Not on file documented as of this encounter Plan of Treatment Not on file documented as of this encounter Procedures Procedure Name Priority Date/Time Associated Diagnosis Comments SCAN - RADIOLOGY/IMAGING 05/09/2019 documented in this encounter Results * SCAN - RADIOLOGY/IMAGING (05/09/2019) Anatomical Region Laterality Modality Other us Provider Scanning Final Result documented in this encounter Visit Diagnoses Not on filedocumented in this encounter Care Teams Jd Edwards Consultant Relationship Specialty Start Date End Date Nir Messer MD [address] [facility] [address] [place] [address] PCP - General 09/23/18 Florecita Tijerina MD [address] [facility] [address] [place], [place] [id number] Internal Medicine 07/23/21 documented as of this encounter
--- OUTSIDE RECORDS SUMMARY | 2024-12-18 07:53 | XMS_ITS | Encounter Summary ---
Author Organization [facility] Address [address] [place] [address] Phone Care Team Providers Care Spring Salvage Worker Name Role Phone Nir Messer MD Primary Care Provider [phone] Florecita Tijerina MD Unavailable [phone] Encounter Details Date Type Department Care Team (Late st Contact Info) Description 11/09/2020 Orders Only [facility] Scanning, Provider Social History Tobacco Use Types Packs/Day Years Used Date Smoking Tobacco: Never Assessed Comments Unknown Sex and Gender Information Value Date Recorded Sex Assigned at Not on file 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 [address] [place] [address] PCP - General 09/23/18 Florecita Tijerina MD [address] [facility] [address] [place] [address] Internal Medicine 07/23/21 documented as of this encounter
--- OUTSIDE RECORDS SUMMARY | 2024-12-18 07:53 | XMS_ITS | Encounter Summary ---
Author Organization [facility] Address [address] [place] [address] Phone Care Team Providers Care Tax Accountant Name Role Phone Neema Spears DO Primary Care Provider [phone] Nir Messer MD Primary Care Provider [phone] Florecita Tijerina MD Unavailable [phone] Encounter Details Date Type Department Care Team (Late st Contact Info) Description 02/27/2018 Orders Only [facility] Scanning, Provider Social History Tobacco Use Types Packs/Day Years Used Date Smoking Tobacco: Never Assessed Comments Unknown Sex and Gender Information Value Date Recorded Sex Assigned at Not on file 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 Gender Identity Not on file Sexual Orientation Not on file documented as of this encounter Plan of Treatment Not on file documented as of this encounter Procedures Procedure Name Priority Date/Time Associated Diagnosis Comments SCAN - RADIOLOGY/IMAGING 02/27/2018 documented in this encounter Results * SCAN - RADIOLOGY/IMAGING (02/27/2018) Anatomical Region Laterality Modality Other us Provider Scanning Final Result documented in this encounter Visit Diagnoses Not on filedocumented in this encounter Care Teams Tax Accountant Relationship Specialty Start Date End Date Neema Spears DO PCP - General General Surgery 03/15/18 09/22/18 Nir Messer MD [address] [facility] [address] [place] [address] PCP - General 09/23/18 Florecita Tijerina MD [address] [facility] [address] [place] [address] Internal Medicine 07/23/21 documented as of this encounter
--- OUTSIDE RECORDS SUMMARY | 2024-12-18 07:53 | XMS_ITS | Clinical Summary ---
Author Organization [facility] Address [address] [place] [address] Care Team Providers Care Operational Review Sergeant Name Role Phone Bernard Minor MD Primary Care Provider [phone] Allergies Active Allergy Reactions Criticality Noted Date Comments Hydrocodone Rash Low 03/09/2018 Penicillins Rash Low 03/09/2018 Medications cholecalciferol, vitamin D3, (VITAMIN D3 ORAL) Take by mouth daily. Active multivitamin (DAILY-RAYNA) tablet Take 1 Tablet by mouth daily. 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 Gender Identity Not on file Sexual Orientation Not on file Last Filed Vital Signs Vital Sign Reading Time Taken Comments Blood Pressure 131/81 03/23/2018 9:44 AM MOLECULAR GENETIC PATHOLOGIST Pulse 112 03/23/2018 9:44 AM MOLECULAR GENETIC PATHOLOGIST Temperature 36.6 C (97.8 F) 03/23/2018 9:44 AM MOLECULAR GENETIC PATHOLOGIST Respiratory Rate - - Oxygen Saturation 98% 03/23/2018 9:44 AM MOLECULAR GENETIC PATHOLOGIST Inhaled Oxygen Concentration - - Weight 45 kg (99 lb 4.8 oz) 03/23/2018 9:[address] Height 154.9 cm (5' 1) 03/23/2018 9:44 AM MOLECULAR GENETIC PATHOLOGIST Body Mass Index 18.76 03/23/2018 9:44 AM MOLECULAR GENETIC PATHOLOGIST Plan of Treatment Health Maintenance Due Date Last Done Comments DTAP/TDAP/TD VACCINES (1 - Tdap) 1981 HPV/Cotest (21-29) 1983 CERVICAL CANCER SCREENING 1992 HPV/Cotest (30-65) 1992 PAP SMEAR 1992 COLORECTAL SCREENING 2007 Colorectal Cancer Screening 2007 FIT-DNA Q 3 years 2007 FIT/FOBT Q 1 year 2007 Flex Sig/CT Colonography Q 5 years 2007 ZOSTER VACCINE (1 of 2) 2012 BREAST CANCER SCREENING 03/07/2019 03/07/20 18, 02/27/2018, 08/12/2016, Additional history exists INFLUENZA VACCINE (#1) 2024 RSV VACCINE (60+ or ) (1 - 1-dose 75+ series) 2037 Procedures Procedure Name Priority Date/Time Associated Diagnosis Comments MAMMO SCRN TO DIAG UNI LEFT Routine 03/07/2018 from Last 3 Months or Most Recently Relevant to Health Maintenance Results * MAMMO SCRN TO DIAG UNI LEFT (03/07/2018) Anatomical Region Laterality Modality Breast Mammography us Abstract Provider MAMMO ORDERABLES Final Result from Last 3 Months or Most Recently Relevant to Health Maintenance Care Teams Operational Review Sergeant Relationship Specialty Start Date End Date Bernard Minor MD [address] [facility] [address] [place] [id number] PCP - General Internal Medicine 03/09/18
--- OUTSIDE RECORDS SUMMARY | 2024-12-18 07:53 | XMS_ITS | Clinical Summary ---
Author Organization [facility] Address [address] [place] [address] Phone Care Team Providers Care Curtain Inspector Name Role Phone Nir Messer MD Primary Care Provider [phone]- [phone] Florecita Tijerina MD Unavailable [phone] Allergies Active Allergy Reactions Criticality Noted Date Comments Hydrocodone Rash Medium 06/24/2011 Penicillins Rash Medium 06/24/2011 Medications raloxifene (EVISTA) 60 mg tablet 2 Active multivitamin tablet Take 1 tablet by mouth daily Active cholecalciferol (VITAMIN D-3) 400 unit capsule Take by mouth Active lactobacillus combination no.4 3 billion cell capsule Take by mouth Active green tea leaf extract capsule Take by mouth Active collagen-biotin- ascorbic acid (Collagen 1500 Plus C) 500 mg-800 mcg- 50 mg capsule Take by mouth complex Active miscellaneous medical supply misc Thyroid Supplement with iron hormone function Takes 2 caps daily Active Active Problems No known active problems Surgical History Surgery Date Site/Laterality Comments DILATION AND CURETTAGE, DIAGNOSTIC / THERAPEUTIC LAPAROSCOPIC OVARIAN CYSTECTOMY SECTION Family History Medical History Relation Name Comments Cancer Father Hypertension Father Heart disease Mother Hypertension Mother Osteoporosis Mother Cancer Sister Hypertension Sister Thyroid disease Sister Relation Name Status Comments Father Mother Sister Social History Tobacco Use Types Packs/Day Years Used Date Smoking Tobacco: Never Smokeless Tobacco: Never Personal Safety Answer Date Recorded Getting School Help Needed Not on file 05/13 Comments Unknown Sex and Gender Information Value Date Recorded Sex Assigned at Not on file 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 Gender Identity Not on file Sexual Orientation Not on file Obstetrics History Last Filed Vital Signs Vital Sign Reading Time Taken Comments Blood Pressure 156/83 07/22/2021 1:36 PM CDT Pulse 89 07/22/2021 1:36 PM CDT Temperature 35.8 C (96.4 F) 07/22/2021 1:36 PM CDT Respiratory Rate - - Oxygen Saturation - - Inhaled Oxygen Concentration - - Weight 46.5 kg (102 lb 9.6 oz) 07/22/2021 1:36 P M CDT Height 154.9 cm (5' 1) 07/22/2021 1:36 PM CDT Body Mass Index 19.39 07/22/2021 1:36 PM CDT Plan of Treatment Not on file Insurance [employer] Care Teams Curtain Inspector Relationship Specialty Start Date End Date Nir Messer MD [address] [facility] [address] [place] [address] PCP - General 09/23/18 Florecita Tijerina MD [address] [place] [address] Internal Medicine 07/23/21
--- OUTSIDE RECORDS SUMMARY | 2024-12-18 07:53 | XMS_ITS | Encounter Summary ---
Author Organization [facility] [employer] [facility] Address [address] [place] [address] Phone Care Team Providers Care Gang Punch Operator Name Role Phone Neema Spears DO Primary Care Provider [phone] Nir Messer MD Primary Care Provider [phone]- [phone] Florecita Tijerina MD Unavailable [phone] Encounter Details Date Type Department Care Team (Late st Contact Info) Description 12/02/2012 Orders Only [facility] Scanning, Provider Social History Tobacco Use Types Packs/Day Years Used Date Smoking Tobacco: Never Assessed Comments Unknown Sex and Gender Information Value Date Recorded Sex Assigned at Not on file 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 Gender Identity Not on file Sexual Orientation Not on file documented as of this encounter Plan of Treatment Not on file documented as of this encounter Procedures Procedure Name Priority Date/Time Associated Diagnosis Comments SCAN - RADIOLOGY/IMAGING 12/02/2012 documented in this encounter Results * SCAN - RADIOLOGY/IMAGING (12/02/2012) Anatomical Region Laterality Modality Other us Provider Scanning Final Result documented in this encounter Visit Diagnoses Not on filedocumented in this encounter Care Teams Gang Punch Operator Relationship Specialty Start Date End Date Neema Spears DO PCP - General General Surgery 03/15/18 09/22/18 Nir Messer MD [address] [facility] [address] [place] [address] PCP - General 09/23/18 Florecita Tijerina MD [address] [facility] [address] [place] [address] Internal Medicine 07/23/21 documented as of this encounter
--- OUTSIDE RECORDS SUMMARY | 2024-12-18 07:53 | XMS_ITS | Encounter Summary ---
Author Organization [facility] Address [address] [place] [address] Phone Care Team Providers Care Global Technical Writer Name Role Phone Neema Spears DO Primary Care Provider [phone] Nir Messer MD Primary Care Provider [phone]- [phone] Florecita Tijerina MD Unavailable [phone] Encounter Details Date Type Department Care Team (Late st Contact Info) Description 03/07/2018 Orders Only [facility] Scanning, Provider Social History Tobacco Use Types Packs/Day Years Used Date Smoking Tobacco: Never Assessed Comments Unknown Sex and Gender Information Value Date Recorded Sex Assigned at Not on file 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 Gender Identity Not on file Sexual Orientation Not on file documented as of this encounter Plan of Treatment Not on file documented as of this encounter Procedures Procedure Name Priority Date/Time Associated Diagnosis Comments SCAN - RADIOLOGY/IMAGING 03/07/2018 documented in this encounter Results * SCAN - RADIOLOGY/IMAGING (03/07/2018) Anatomical Region Laterality Modality Other us Provider Scanning Final Result documented in this encounter Visit Diagnoses Not on filedocumented in this encounter Care Teams Global Technical Writer Relationship Specialty Start Date End Date Neema Spears DO PCP - General General Surgery 03/15/18 09/22/18 Nir Messer MD [address] [place] [address] PCP - General 09/23/18 Florecita Tijerina MD [address] [place] [address] Internal Medicine 07/23/21 documented as of this encounter
--- OUTSIDE RECORDS SUMMARY | 2024-12-18 07:53 | XMS_ITS | Encounter Summary ---
Author Organization [facility] Address [address] [place] [address] Phone Care Team Providers Care Per Diem Physical Therapist Name Role Phone Nir Messer MD Primary Care Provider [phone]- [phone] Florecita Tijerina MD Unavailable [phone] Encounter Details Date Type Department Care Team (Late st Contact Info) Description 11/10/2020 Orders Only [facility] Scanning, Provider Social History Tobacco Use Types Packs/Day Years Used Date Smoking Tobacco: Never Assessed Comments Unknown Sex and Gender Information Value Date Recorded Sex Assigned at Not on file 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 Gender Identity Not on file Sexual Orientation Not on file documented as of this encounter Plan of Treatment Not on file documented as of this encounter Procedures Procedure Name Priority Date/Time Associated Diagnosis Comments SCAN - LABS 11/10/2020 documented in this encounter Results * SCAN - LABS (11/10/2020) us Provider Scanning Final Result documented in this encounter Visit Diagnoses Not on filedocumented in this encounter Care Teams Per Diem Physical Therapist Relationship Specialty Start Date End Date Nir Messer MD [address] [facility] [address] [place], [place] [id number] PCP - General 09/23/18 Florecita Tijerina MD [address] [facility] [address] [place] [address] Internal Medicine 07/23/21 documented as of this encounter
--- OUTSIDE RECORDS SUMMARY | 2024-12-18 07:53 | XMS_ITS | Encounter Summary ---
Author Organization [facility] [facility] Address [address] [place] [address] Phone Care Team Providers Care Supply Chain Systems Manager Name Role Phone Nir Messer MD Primary Care Provider [phone]- [phone] Florecita Tijerina MD Unavailable [phone] Encounter Details Date Type Department Care Team (Late st Contact Info) Description 06/17/2020 Orders Only [facility] Scanning, Provider Social History Tobacco Use Types Packs/Day Years Used Date Smoking Tobacco: Never Assessed Comments Unknown Sex and Gender Information Value Date Recorded Sex Assigned at Not on file 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 Gender Identity Not on file Sexual Orientation Not on file documented as of this encounter Plan of Treatment Not on file documented as of this encounter Procedures Procedure Name Priority Date/Time Associated Diagnosis Comments SCAN - RADIOLOGY/IMAGING 06/17/2020 documented in this encounter Results * SCAN - RADIOLOGY/IMAGING (06/17/2020) Anatomical Region Laterality Modality Other us Provider Scanning Final Result documented in this encounter Visit Diagnoses Not on filedocumented in this encounter Care Teams Supply Chain Systems Manager Relationship Specialty Start Date End Date Nir Messer MD [address] [facility] [address] [place] [address], [place] [id number] PCP - General 09/23/18 Florecita Tijerina MD [address] [place] [address], [place] [id number] Internal Medicine 07/23/21 documented as of this encounter
--- OUTSIDE RECORDS SUMMARY | 2024-12-18 07:53 | XMS_ITS | Clinical Summary ---
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 Gender Identity Not on file Sexual Orientation Not on file Plan of Treatment Health Maintenance Due Date Last Done Comments Cervical Cancer Screening Pa p Smear (Age 30 to 64) Every 3 Years 1962 Colorectal Cancer Screening Colonoscopy (10 Years) 1962 Annual Physical 1965 Hepatitis C 1980 DTaP, Tdap and Td Vaccines ( 1 - Tdap) 1981 Cervical Cancer Screening Pa p with HPV Testing (Age 30 to 64) Every 5 Years 1992 Cervical Cancer Screening with HPV 1992 Mammogram Screening 2002 Pneumococcal Vaccine: 50+ Ye ars (1 of 1 - PCV) 2012 Zoster Vaccines (1 of 2) 2012 COVID-19 Vaccine ( - 2023-2 5 season) 2024 RSV Immunization or 60+ Years (1 - 1-dose 75+ series) 2037 Meningococcal B Vaccine Aged Out No l onger eligible based on patient's age to complete this topic Meningococcal Vaccine Aged Out No cody natalia eligible based on patient's age to complete this topic RSV Immunizations Under 20 Months Aged Out No longer eligible based on patient's age to complete this topic
--- OUTSIDE RECORDS SUMMARY | 2024-12-18 07:53 | XMS_ITS | Patient Health Record ---
Author Organization [employer] [facility] [employer] [facility] Address [address] [facility] [address] [place], [place] [address] Care Team Providers Care Clinical Data Assistant Name Role Phone Francis Ag Unavailable [phone] FLORESITA FLOWERS, CALVIN [facility]available [facility] No Information PLAN OF TREATMENT No Information Insurance Providers Payer Name Payer Address Payer Phone Subscriber Number Group Number Insured Name Patient Relationship to Insured Coverage Start Date Coverage End Date [facility] [address] [place] [address] [phone] [id number] MIO ALBA Spouse - patient is the spouse of the insured 2006
== END 2024-12-18 07:44 | disposition home or self-care (01) ==
PROVIDERS: PCP Internal Medicine; Visit Provider Student in an Organized Health Care Education/Training Program
DX: Z12.31 Encounter for screening mammogram for malignant neoplasm of breast (principal)
CPT/HCPCS: 77063; 77067

== ENCOUNTER 2024-12-24 13:00 | Outpatient (CLI) | payer BC, SELFPAY ==
--- NOTE | ~2024-12-24 | DEXA_ITS ---
Bone Density Report Name: VALERIO ALBA Age: 64 Sex: Female Ethnicity: White Date of : 1960 Indication: postmenopausal osteoporosis; history of glucocorticoids; rheumatoid arthritis; Referring Provider: LOPEZ, ALENA Galindo Study: Bone densitometry was performed. Exam Date: December 24, 2024 Accession number: [id number] Bone Density: Region BMD T-score Z-score Classification AP Spine(L1-L4) 0.680 -3.3 -1.7 Osteoporosis Femoral Neck (Left) 0.581 -2.4 -1.0 Osteopenia Total Hip (Left) 0.627 -2.6 -1.5 Osteoporosis Femoral Neck (Right) 0.542 -2.8 -1.4 Osteoporosis Total Hip (Right) 0.683 -2.1 -1.0 Osteopenia Total Hip Mean 0.655 -2.4 -1.3 Osteopenia World Health Organization criteria for BMD impression classify patients as: Normal (T-score at or above -1.0), Osteopenia (T-score between -1.0 and -2.5), or Osteoporosis (T-score at or below -2.5). 10-year Fracture Risk: FRAX not reported because: Some T-score for Spine Total or Hip Total or Femoral Neck at or below -2.5 Previous Exams: -- Region Exam Age BMD T-score BMD Change BMD Change Date g/cm2 vs Baseline vs Previous -- AP Spine (L1-L4) 12/24/2024 64 0.680 -3.3 -27.9%# -8.1%* 05/09/2019 59 0.740 -2.8 -21.5%# -0.7% 02/27/2018 57 0.746 -2.7 -20.9%# -13.2%* 01/23/2015 54 0.859 -1.7 -8.9%# 0.8% 12/02/2012 52 0.853 -1.8 -9.6%# -9.6%# 04/25/2002 42 0.943 -0.9 Total Hip(Left) 12/24/2024 64 0.627 -2.6 -26.1%# -14.5%* 05/09/2019 59 0.733 -1.7 -13.7%# 2.4% 02/27/2018 57 0.716 -1.9 -15.7%# -5.3%* 01/23/2015 54 0.756 -1.5 -11.0%# -3.8%* 12/02/2012 52 0.786 -1.3 -7.4%# -7.4%# 04/25/2002 42 0.849 -0.8 Total Hip(Right) 12/24/2024 64 0.683 -2.1 -22.6%# -11.0%* 05/09/2019 59 0.767 -1.4 -13.0%# 1.4% 02/27/2018 57 0.757 -1.5 -14.2%# -5.7%* 01/23/2015 54 0.803 -1.1 -9.0%# -3.9%* 12/02/2012 52 0.836 -0.9 -5.3%# -5.3%# 04/25/2002 42 0.882 -0.5 -- *Denotes significance at 95% confidence level, LSC for AP Spine = 0.022 g/cm2, LSC for Total Hip = 0.027 g/cm2 # Denotes dissimilar scan types or analysis methods Clinical Information Provided by Patient: Has taken Glucocorticoids Has rheumatoid arthritis Has used the following medications: Evista (i.e. raloxifene), Vitamin D, Calcium Patient maximum height was 61 Menopause Age: 51 Drinks caffeinated beverages Onset of menses at age 14 Number of children 1 Impression: The patient has osteoporosis, based on the Total Spine T-score. The patient has risk factors, including: history of glucocorticoid therapy. The BMD for the AP Spine (L1-L4) decreased, changing by -8.1% since the last DXA exam. The BMD for the Total Hip(Left) decreased, changing by -14.5% since the last DXA exam. The BMD for the Total Hip(Right) decreased, changing by -11.0% since the last DXA exam. Discussion: INCREASED RISK OF FRACTURE. BONE DENSITY IS UNDESIRABLY LOW AT ONE OR MORE SKELETAL SITES, CONSISTENT WITH POSTMENOPAUSAL OSTEOPOROSIS. This patient's lowest T-score meets the World Health Organization's (WHO) criteria for osteoporosis at one or more sites (T-score -2.5 or below). In untreated patients, the risk of osteoporotic fracture increases approximately two-fold for each 1.0 SD decrease in T-score. Low bone density is not the only risk factor for fracture; also consider factors such as patient's age, frailty or poor health, risk of falling, risk of injury, previous osteoporotic fracture, family history of osteoporosis, cigarette smoking, low body weight, etc. Not everyone with low bone mineral density has osteoporosis; osteomalacia and other metabolic bone disorders should also be considered. Patients who have osteoporosis should be evaluated for specific diseases and conditions (secondary causes) that may cause or contribute to bone loss. The [place] Association of Clinical Endocrinologists (AACE) and National Osteoporosis Foundation (NOF) recommend pharmacologic intervention for all postmenopausal women whose T-score is in this range. The patient should follow a healthful lifestyle (good nutrition with adequate calcium and vitamin D, and appropriate weight-bearing exercise). Follow-Up: Consider a repeat BMD and Vertebral Fracture Assessment (VFA) exam in 2 years or sooner if medically necessary, to reassess this patient's status. Reported by: GARRY on 12/24/2024 1:25:00 PM. Reviewed, dictated and finalized at location A.
== END 2024-12-24 13:01 | disposition home or self-care (01) ==
LOC: MICIMG 13:01
PROVIDERS: PCP Internal Medicine; Visit Provider Student in an Organized Health Care Education/Training Program
DX: Z13.820 Encounter for screening for osteoporosis (principal); M81.0 Age-related osteoporosis without current pathological fracture; M85.852 Other specified disorders of bone density and structure, left thigh; M85.851 Other specified disorders of bone density and structure, right thigh
CPT/HCPCS: 77080